=== PATIENT | female | born 1995 | race Caucasian/White ===

== ENCOUNTER 2021-05-10 15:53 | Inpatient (IN) | payer OTHER ==
[~2021-05-10] VITALS: Ht 154.9 cm; Wt 94.3 kg
[~2021-05-10 15:53] MED LIST: PRENTAB9 PO; UNIS25TA3 PO
[2021-05-10 16:14] VITALS: BP 146/90
[2021-05-10] MEDS ORDERED: HOME MED LIST COMPLETE! XX SCH (16:15)
[2021-05-10 16:26] VITALS: BP 134/91
[2021-05-10 16:36] VITALS: BP 128/84
[2021-05-10 16:46] VITALS: BP 133/83
[2021-05-10 16:56] VITALS: BP 142/82
[2021-05-10] MEDS ORDERED: OXYTOCIN DRIP 30 UNITS in IV 1 EA IV SCH (17:30)
[2021-05-10] MEDS ORDERED: OXYTOCIN INJ 10 UNITS/ML VIAL (J2590) IV PRN (17:30)
[2021-05-10] MEDS ORDERED: LIDOCAINE 1% MDV 20ML VIAL INFIL PRN (17:30)
[2021-05-10] MEDS ORDERED: LR 1,000 ML IV SCH (17:30)
[2021-05-10] MEDS ORDERED: OXYTOCIN DRIP 30 UNITS in IV 1 EA IV PRN ×4 (17:30)
[2021-05-10 19:39] LABS: HEMATOCRIT 36.3 % (36.0-47.0); MEAN CORPUSCULAR HEMOGLOBIN 29.1 pg (27.0-33.0); MEAN CORPUSCULAR HGB CONC 33.1 g/dl (32.0-36.5); MEAN CORPUSCULAR VOLUME 87.9 fl (80.0-96.0); PLATELET COUNT, AUTOMATED 191 10^3/uL (150-450); RED BLOOD COUNT 4.13 10^6/uL (4.00-5.40); WHITE BLOOD COUNT 9.5 10^3/uL (4.0-10.0)
[2021-05-10] MEDS ORDERED: OXYTOCIN 30 UNITS IN 0.9% NaCl 500ML IV BAG (J2590) As Ordered ONE (19:57)
[2021-05-10] MEDS: LR 1,000 ML IV SCH (20:06)
[2021-05-10 20:12] LABS: ALT/SGPT 29 U/L (12-78); BILIRUBIN,TOTAL 0.3 MG/DL (0.2-1.0); CREATININE FOR GFR 0.68 MG/DL (0.55-1.30); GLOMERULAR FILTRATION RATE > 60.0 (>60); LDH LACTATE DEHYDROGENASE 185 U/L (84-246); URIC ACID 5.4 MG/DL (2.6-6.0)
[2021-05-10] MEDS ORDERED: FENTANYL 2MCG/ML ROPIVACAINE 0.2% IN 0.9% NACL 100ML IVBAG As Ordered ONE (22:15)
[2021-05-10] MEDS ORDERED: FENTANYL/ROPIVACAINE/NACL BAG 100 ML EPIDURAL SCH (22:23)
[2021-05-10] MEDS ORDERED: EPIDURAL COMMENT XX SCH (22:23)
[2021-05-10] MEDS ORDERED: ePHEDrine SULFATE 25 MG/5 ML(5MG/ML) SYRINGE IV PRN (22:23)
[2021-05-10] MEDS ORDERED: EPIDURAL/PCA KEYS XX PRN (22:23)
[2021-05-10] MEDS ORDERED: diphenhydrAMINE 50MG/ML VIAL (J1200) IV PRN (22:23)
[2021-05-10] MEDS ORDERED: LACTATED RINGER'S 1000 ML IV PRN (22:23)
[2021-05-10] MEDS ORDERED: ONDANSETRON 4MG/2ML VIAL IV PRN (22:23)
[2021-05-10] MEDS ORDERED: REFRIGERATOR IV KEYS XX PRN (22:23)
[2021-05-10] MEDS ORDERED: NALOXONE INJ 0.4MG/1ML VIAL (J2310 PER 1MG) IV PRN (22:23)
[2021-05-11] VITALS (9 sets, daily range): BP systolic 101–139; BP diastolic 62–87
[2021-05-11] MEDS: LR 1,000 ML IV SCH (01:30)
[2021-05-11] MEDS ORDERED: AMPICILLIN SOD 2 GM in D5W MINI-BAG PLUS 100 ML IV ONE (09:10)
[2021-05-11] MEDS ORDERED: ACETAMINOPHEN 500 MG TAB PO ONE (09:10)
[2021-05-11] MEDS ORDERED: ACETAMINOPHEN TAB 650MG DOSE (2X325MG) PO PRN (09:35)
[2021-05-11] MEDS ORDERED: OXYTOCIN DRIP 30 UNITS in IV 1 EA IV SCH ×4 (09:35)
[2021-05-11] MEDS ORDERED: DIBUCAINE 1% OINTMENT 30GM TOP PRN (09:35)
[2021-05-11] MEDS ORDERED: ONDANSETRON 4MG/2ML VIAL IV PRN (09:35)
[2021-05-11] MEDS ORDERED: IBUPROFEN 600MG TAB PO PRN (09:35)
[2021-05-11] MEDS ORDERED: LR 1,000 ML IV SCH (09:35)
[2021-05-11] MEDS ORDERED: RHOGAM 300 MCG (1500 IU) INJ (J2790) IM SCH (09:35)
[2021-05-11] MEDS ORDERED: ANUSOL HC CREAM 30GM TOP PRN (09:35)
[2021-05-11] MEDS ORDERED: MEASLES,MUMPS,RUBELLA VACCINE INJ (MMR-II) (90707) SC SCH (09:35)
[2021-05-11] MEDS ORDERED: GENTAMICIN 400 MG in D5W 100 ML IV ONE ×2 (10:00→10:25)
[2021-05-11] MEDS: IBUPROFEN 800 MG TAB PO PRN (17:05)
[2021-05-11] MEDS: DOCUSATE SODIUM 100MG CAPSULE PO SCH (22:55)
[2021-05-11] MEDS: ACETAMINOPHEN 500 MG TAB PO PRN (22:56)
[2021-05-12 06:00] VITALS: BP 134/79
[2021-05-12] MEDS: PRENATAL VITAMINS CHEWABLE TABLET PO SCH (09:26)
[2021-05-12] MEDS: DOCUSATE SODIUM 100MG CAPSULE PO SCH ×2 (09:26→22:42)
[2021-05-12 19:00] VITALS: BP 140/81
[2021-05-12] MEDS: IBUPROFEN 800 MG TAB PO PRN (22:41)
[2021-05-13 05:44] VITALS: BP 134/87
[2021-05-13] MEDS ORDERED: COLA100C5 PO (06:13)
[2021-05-13] MEDS ORDERED: IBUP-1022 PO (06:13)
[2021-05-13] MEDS ORDERED: ACET1TAB55 PO (06:13)
[2021-05-13] MEDS: PRENATAL VITAMINS CHEWABLE TABLET PO SCH (08:02)
[2021-05-13] MEDS: DOCUSATE SODIUM 100MG CAPSULE PO SCH (08:02)
[2021-05-13] MEDS: ACETAMINOPHEN 500 MG TAB PO PRN (08:02)
== END 2021-05-13 11:00 | disposition home or self-care (01) | DRG 807 ==
LOC: M LDO 15:53 → M LDI 17:25 → M OBS 05-11 13:25
PROVIDERS: ADMIT Obstetrics & Gynecology; ATTEND Obstetrics & Gynecology
PROC: 10E0XZZ Delivery of Products of Conception, External Approach (ICD-10-PCS; principal; 2021-05-11)
PROC: 0KQM0ZZ Repair Perineum Muscle, Open Approach (ICD-10-PCS; 2021-05-11)
DX: O13.4 Gestational [pregnancy-induced] hypertension without significant proteinuria, complicating childbirth (principal); Z37.0 Single live birth; Z3A.39 39 weeks gestation of pregnancy; O26.00 Excessive weight gain in pregnancy, unspecified trimester; Z88.8 Allergy status to other drugs, medicaments and biological substances; O76 Abnormality in fetal heart rate and rhythm complicating labor and delivery; O41.1290 Chorioamnionitis, unspecified trimester, not applicable or unspecified; O70.1 Second degree perineal laceration during delivery; R00.0 Tachycardia, unspecified

== ENCOUNTER 2022-04-05 09:58 | Outpatient (CLI) | payer OTHER ==
[~2022-04-05] VITALS: Ht 154.9 cm; Wt 96.4 kg
[~2022-04-05 09:58] MED LIST changes: +ACET1TAB55 PO; +COLA100C5 PO; +IBUP-1022 PO
[2022-04-05 10:20] VITALS: BP 178/96
[2022-04-05 10:21] VITALS: BP 131/64
[2022-04-05] MEDS ORDERED: MAGN250T7 PO (10:31)
[2022-04-05] MEDS ORDERED: B-12100021 PO (10:31)
[2022-04-05] MEDS ORDERED: TUMS500C PO (10:31)
[2022-04-05] MEDS ORDERED: ASPI81CH33 PO (10:33)
[2022-04-05 11:37] VITALS: BP 104/51
== END 2022-04-05 13:34 | disposition home or self-care (01) ==
LOC: M LDO 09:58
PROVIDERS: ATTEND Registered Nurse
DX: O47.1 False labor at or after 37 completed weeks of gestation (principal); Z3A.39 39 weeks gestation of pregnancy; Z88.8 Allergy status to other drugs, medicaments and biological substances
CPT/HCPCS: 59025; G0463

== ENCOUNTER 2022-04-07 18:16 | Inpatient (IN) | payer OTHER ==
[2022-04-07] VITALS (22 sets, daily range): BP systolic 129–199; BP diastolic 60–100
[~2022-04-07] VITALS: Ht 154.9 cm; Wt 98.6 kg
[~2022-04-07 18:16] MED LIST changes: +ASPI81CH33 PO; +B-12100021 PO; +MAGN250T7 PO; +TUMS500C PO
[2022-04-07] MEDS ORDERED: LACTATED RINGER'S 1000 ML IV STA (19:11)
[2022-04-07] MEDS ORDERED: LIDOCAINE 1% MDV 20ML VIAL INFIL PRN (19:15)
[2022-04-07] MEDS ORDERED: TRANEXAMIC ACID INJection 1,000 MG in NS 100 ML IV PRN (19:15)
[2022-04-07] MEDS ORDERED: OXYTOCIN DRIP 30 UNITS in IV 1 EA IV SCH (19:15)
[2022-04-07] MEDS ORDERED: LR 1,000 ML IV SCH ×2 (19:15)
[2022-04-07] MEDS ORDERED: OXYTOCIN INJ 10UNITS/ML 1ML VIAL IM PRN (19:15)
[2022-04-07] MEDS ORDERED: CARBOPROST TROMETHAMINE 250 MCG/ML AMP IM PRN (19:15)
[2022-04-07] MEDS ORDERED: OXYTOCIN INJ 10UNITS/ML 1ML VIAL IV PRN (19:15)
[2022-04-07] MEDS ORDERED: OXYTOCIN DRIP 30 UNITS in IV 1 EA IV PRN ×6 (19:15)
[2022-04-07 19:45] LABS: HEMATOCRIT 32.7 % (36.0-47.0); HEMOGLOBIN 10.8 g/dl (12.0-15.5); MEAN CORPUSCULAR HEMOGLOBIN 29.1 pg (27.0-33.0); MEAN CORPUSCULAR VOLUME 88.1 fl (80.0-96.0); PLATELET COUNT, AUTOMATED 192 10^3/uL (150-450); RED BLOOD COUNT 3.71 10^6/uL (4.00-5.40); WHITE BLOOD COUNT 9.7 10^3/uL (4.0-10.0)
[2022-04-07 20:07] LABS: URIC ACID 5.2 MG/DL (3.1-7.8)
[2022-04-07 20:09] LABS: LDH LACTATE DEHYDROGENASE 170 U/L (120-246)
[2022-04-07 20:10] LABS: ALT/SGPT 28 U/L (7.0-40); AST/SGOT 23 U/L (<34); BILIRUBIN,TOTAL 0.3 MG/DL (0.3-1.2); CREATININE FOR GFR 0.55 MG/DL (0.55-1.30); GLOMERULAR FILTRATION RATE > 60.0 (>60)
[2022-04-07 20:10] LABS: CREATININE,RANDOM URINE 40.2 MG/DL
[2022-04-07 20:18] LABS: TOTAL PROTEIN,RANDOM URINE < 6.0 MG/DL (0.0-14.0)
[2022-04-07] MEDS ORDERED: NALOXONE INJ 0.4MG/1ML VIAL IV PRN (22:25)
[2022-04-07] MEDS ORDERED: FENTANYL/ROPIVACAINE/NACL BAG 100 ML EPIDURAL SCH (22:25)
[2022-04-07] MEDS ORDERED: EPIDURAL/PCA KEYS XX PRN (22:25)
[2022-04-07] MEDS ORDERED: diphenhydrAMINE 50MG/ML VIAL IV PRN (22:25)
[2022-04-07] MEDS ORDERED: ePHEDrine SULFATE 25 MG/5 ML(5MG/ML) SYRINGE IVP PRN (22:25)
[2022-04-07] MEDS ORDERED: ONDANSETRON 4MG 2ML VIAL IV PRN (22:25)
[2022-04-07] MEDS ORDERED: LR 500 ML IV PRN (22:25)
[2022-04-08] VITALS (20 sets, daily range): BP systolic 118–169; BP diastolic 59–86
[2022-04-08] MEDS ORDERED: RHOGAM 300MCG (1500IU) INJ IM SCH (07:05)
[2022-04-08] MEDS ORDERED: IBUPROFEN 800 MG TAB PO PRN (07:05)
[2022-04-08] MEDS ORDERED: DIBUCAINE 1% OINTMENT 30GM TOP PRN (07:05)
[2022-04-08] MEDS ORDERED: DOCUSATE SODIUM 100MG CAPSULE PO PRN (07:05)
[2022-04-08] MEDS ORDERED: ACETAMINOPHEN 500 MG TAB PO PRN (07:05)
[2022-04-08] MEDS ORDERED: MOM 30ML SUSPENSION UDC PO PRN (07:05)
[2022-04-08] MEDS ORDERED: LABE200T5 PO (07:45)
[2022-04-08] MEDS ORDERED: OMEP10CASR PO (07:45)
[2022-04-08] MEDS ORDERED: HOME MED LIST COMPLETE! XX SCH (07:45)
[2022-04-08] MEDS: PRENATAL VITAMINS CHEWABLE TABLET PO SCH (08:48)
[2022-04-09 06:00] VITALS: BP 120/73
[2022-04-09] MEDS: PRENATAL VITAMINS CHEWABLE TABLET PO SCH (09:13)
[2022-04-10] MEDS ORDERED: MEASLES,MUMPS,RUBELLA VACCINE INJ (MMR-II) SC.IMMUN ONE (09:00)
== END 2022-04-09 12:12 | disposition home or self-care (01) | DRG 807 ==
LOC: M LDO 18:16 → M LDI 18:51 → M OBS 04-08 09:20
PROVIDERS: ADMIT Registered Nurse; ATTEND Obstetrics & Gynecology
PROC: 10E0XZZ Delivery of Products of Conception, External Approach (ICD-10-PCS; principal; 2022-04-08)
PROC: 10907ZC Drainage of Amniotic Fluid, Therapeutic from Products of Conception, Via Natural or Artificial Opening (ICD-10-PCS; 2022-04-08)
DX: O10.02 Pre-existing essential hypertension complicating childbirth (principal); Z37.0 Single live birth; O99.214 Obesity complicating childbirth; E66.9 Obesity, unspecified; Z68.37 Body mass index [BMI] 37.0-37.9, adult; O76 Abnormality in fetal heart rate and rhythm complicating labor and delivery; O69.81X0 Labor and delivery complicated by cord around neck, without compression, not applicable or unspecified; Z3A.39 39 weeks gestation of pregnancy

== ENCOUNTER → 2023-06-11 | Outpatient (REF) | payer OTHER ==
[~2023-06-11] MED LIST changes: +LABE200T5 PO; +OMEP10CASR PO
== END ==
LOC: M LAB REF 17:59
PROVIDERS: ATTEND Physician Assistant
DX: R07.0 Pain in throat (principal)

== ENCOUNTER → 2023-07-16 | Outpatient (REF) | payer OTHER ==
[2023-07-16 18:39] LABS: APPEARANCE, URINE CLOUDY (CLEAR); BACTERIA, URINE AUTO NEGATIVE (NEGATIVE); BILIRUBIN, URINE AUTO NEGATIVE (NEGATIVE); BLOOD, URINE BLOOD 1+ (NEGATIVE); COLOR, URINE AMBER (YELLOW); GLUCOSE, URINE (UA) AUTO NEGATIVE (NEGATIVE); KETONE, URINE AUTO NEGATIVE (NEGATIVE); LEUKOCYTE ESTERASE, URINE AUTO 3+ (NEGATIVE); MUCUS, URINE SMALL (NEGATIVE); NITRITE, URINE AUTO POSITIVE (NEGATIVE); PROTEIN, URINE AUTO 2+ mg/dL (NEGATIVE); RBC, URINE AUTO 22 /HPF (0-3); SPECIFIC GRAVITY URINE AUTO 1.015 (1.002-1.035); SQUAMOUS EPITHELIAL CELL UR AU 1 /HPF (0-6); UROBILINOGEN, URINE AUTO 0.2 mg/dL (0.0-2.0); WBC, URINE AUTO TNTC /HPF (0-3)
== END ==
LOC: EEVIPCON 17:35 → M LAB REF 17:35
PROVIDERS: ATTEND Physician Assistant Medical
DX: N39.0 Urinary tract infection, site not specified (principal)

== ENCOUNTER → 2023-09-21 | Outpatient (REF) | payer OTHER ==
[2023-09-21 22:25] LABS: APPEARANCE, URINE HAZY (CLEAR); BACTERIA, URINE AUTO NEGATIVE (NEGATIVE); BILIRUBIN, URINE AUTO NEGATIVE (NEGATIVE); BLOOD, URINE BLOOD NEGATIVE (NEGATIVE); COLOR, URINE YELLOW (YELLOW); GLUCOSE, URINE (UA) AUTO NEGATIVE (NEGATIVE); KETONE, URINE AUTO NEGATIVE (NEGATIVE); LEUKOCYTE ESTERASE, URINE AUTO 2+ (NEGATIVE); NITRITE, URINE AUTO NEGATIVE (NEGATIVE); PROTEIN, URINE AUTO NEGATIVE (NEGATIVE); RBC, URINE AUTO 2 /HPF (0-3); SPECIFIC GRAVITY URINE AUTO 1.013 (1.002-1.035); SQUAMOUS EPITHELIAL CELL UR AU 3 /HPF (0-6); UROBILINOGEN, URINE AUTO 0.2 mg/dL (0.0-2.0); WBC, URINE AUTO 30 /HPF (0-3)
== END ==
LOC: M LAB REF 22:00
PROVIDERS: ATTEND Physician Assistant
DX: N39.0 Urinary tract infection, site not specified (principal)

== ENCOUNTER 2024-04-09 11:12 | Outpatient (CLI) | payer OTHER ==
[~2024-04-09] VITALS: Ht 154.9 cm; Wt 95.2 kg
[2024-04-09] MEDS ORDERED: ECOT81TA5 PO (11:29)
[2024-04-09] MEDS ORDERED: HOME MED LIST COMPLETE! XX SCH (11:30)
[2024-04-09 11:35] VITALS: BP 119/71
[2024-04-09 12:53] LABS: BASO % 0.2 % (0.0-1.0); EOS % 0.4 % (0.0-3.0); HEMATOCRIT 34.7 % (36.0-47.0); HEMOGLOBIN 11.4 g/dl (12.0-15.5); LYMPH # 1.5 10^3/uL (1.5-5.0); LYMPH % 15.4 % (24.0-44.0); MEAN CORPUSCULAR HEMOGLOBIN 29.9 pg (27.0-33.0); MEAN CORPUSCULAR HGB CONC 32.9 g/dl (32.0-36.5); MEAN CORPUSCULAR VOLUME 91.1 fl (80.0-96.0); MONO # 0.6 10^3/uL (0.0-0.8); MONO % 5.9 % (2.0-8.0); NEUTROPHILS # 7.4 10^3/uL (1.5-8.5); NEUTROPHILS % 77.7 % (36.0-66.0); PLATELET COUNT, AUTOMATED 195 10^3/uL (150-450); RED BLOOD COUNT 3.81 10^6/uL (4.00-5.40); WHITE BLOOD COUNT 9.5 10^3/uL (4.0-10.0)
[2024-04-09 13:06] LABS: INR 0.91; PROTHROMBIN TIME 12.6 SECONDS (12.5-14.5)
[2024-04-09 14:02] VITALS: BP 113/61
== END 2024-04-09 15:30 | disposition home or self-care (01) ==
LOC: M LDO 11:12
PROVIDERS: ATTEND Advanced Practice Midwife
DX: O26.893 Other specified pregnancy related conditions, third trimester (principal); O99.213 Obesity complicating pregnancy, third trimester; M25.552 Pain in left hip; R10.9 Unspecified abdominal pain; Z3A.25 25 weeks gestation of pregnancy; E66.9 Obesity, unspecified
CPT/HCPCS: 36415; 59025; 85025; 85384; 85460; 85610; G0463

== ENCOUNTER → 2024-06-25 | Outpatient (REF) | payer OTHER ==
[~2024-06-25] MED LIST changes: +ECOT81TA5 PO
== END ==
LOC: M SFHCWAGY 13:00
PROVIDERS: ATTEND Obstetrics & Gynecology
DX: Z36.85 Encounter for antenatal screening for Streptococcus B (principal); Z3A.36 36 weeks gestation of pregnancy